=== PATIENT | female | born 1970 | race Two or more races ===

== ENCOUNTER 2017-02-16 12:49 | Emergency (ER) | payer BC ==
[~2017-02-16] VITALS: Ht 162.6 cm; Wt 81.6 kg
[2017-02-16] MEDS ORDERED: IV NORMAL SALINE 1000ML BAG 1,000 ML IV SCH (13:29)
[2017-02-16 13:46] LABS: BASO % 1 % (0-3); EOS % 1 % (0-3); HEMATOCRIT 43.2 % (36.0-47.0); HEMOGLOBIN 14.6 g/dL (12.0-15.5); LYMPH # 1.2 x10^3/uL (1.0-4.8); LYMPH % 17 % (24-48); MEAN CORPUSCULAR HEMOGLOBIN 31 pg (25-35); MEAN CORPUSCULAR HGB CONC 34 g/dL (31-37); MEAN CORPUSCULAR VOLUME 91 fL (79-100); MONO % 7 % (0-9); NEUT % 74 % (31-73); PLATELET COUNT 222 x10^3/uL (140-400); RED BLOOD COUNT 4.73 x10^6/uL (3.50-5.40); RED CELL DISTRIBUTION WIDTH 13.2 % (11.5-14.5); WHITE BLOOD COUNT 6.6 x10^3/uL (4.0-11.0)
--- NOTE | 2017-02-16 13:47 | EKG ---
[facility] [address] [place] [address] Test Date: 2017-02-16 Test Time: 13:39:41 Pat Name: CRESCENCIO MENDOSA Department: Room: Gender: F [employer]: : 1970 Requested By: LETICIA POE Order Number: [id number] Reading MD: Rebeca Figueroa Measurements Intervals Warner Rate: 73 P: 31 PA: 166 QRS: 21 QRSD: 90 T: 26 QT: 372 QTc: 413 Interpretive Statements SINUS RHYTHM NORMAL ECG Electronically Signed On 02-16-2017 21:06:18 CDT by Rebeca Figueroa
[2017-02-16 13:55] LABS: INR 0.9 (0.8-1.1); PROTHROMBIN TIME PATIENT 11.6 SEC (11.7-14.0)
[2017-02-16 14:00] LABS: CALCIUM 9.5 mg/dL (8.5-10.1); CREATININE 0.6 mg/dL (0.6-1.0); GFR 108.6; POTASSIUM 3.7 mmol/L (3.5-5.1)
[2017-02-16 14:02] LABS: NEG OBC SER NEG; POS OBC SER POS
[2017-02-16 14:03] LABS: ALBUMIN 3.5 g/dL (3.4-5.0); DIRECT BILIRUBIN 0.1 mg/dL (0.0-0.2); MAGNESIUM 1.7 mg/dL (1.8-2.4); TOTAL BILIRUBIN 0.5 mg/dL (0.2-1.0); TOTAL PROTEIN 7.9 g/dL (6.4-8.2)
--- NOTE | 2017-02-16 14:08 | PHYS DOC ---
Past Medical History Past Medical History: Diabetes-Type II, Hypertension Past Surgical History: No Surgical History Alcohol Use: Occasionally Drug Use: None Adult General Chief Complaint Chief Complaint: HYPERGLYCEMIA HPI HPI Patient is a 46 year old female who presents with C me. She was seen by her primary care physician today and they state her sugars were 400. She is normally on insulin twice a day and states she's been very compliant her sugars usually run 200. She states denies any nausea vomiting chest pain or dysuria. She states she feels perfectly fine other than her doctor told her that her sugars were elevated. They did give her additional 20 units of short-acting insulin there. She is normally on aspart and degludec injections. Review of Systems Review of Systems Constitutional: Denies fever or chills [] Eyes: Denies change in visual acuity, redness, or eye pain [] HENT: Denies nasal congestion or sore throat [] Respiratory: Denies cough or shortness of breath [] Cardiovascular: No additional information not addressed in HPI [] GI: Denies abdominal pain, nausea, vomiting, bloody stools or diarrhea [] : Denies dysuria or hematuria [] Musculoskeletal: Denies back pain or joint pain [] Integument: Denies rash or skin lesions [] Neurologic: Denies headache, focal weakness or sensory changes [] Endocrine: Denies polyuria or polydipsia [] Current Medications Current Medications Current Medications Medications (Trade) Dose Ordered Sig/Amada Start Time Stop Time Status Last Admin Dose Admin Sodium Chloride 1,000 ml @ 1,000 mls/hr Q1H 02/16/17 13:29 02/16/17 14:29 DC 02/16/17 14:35 1,000 MLS/HR Allergies Allergies Allergies Coded Allergies Type Severity Reaction Last Updated Verified No Known Drug Allergies 02/16/17 No Physical Exam Physical Exam Constitutional: Well developed, well nourished, no acute distress, non-toxic appearance. [] HENT: Normocephalic, atraumatic, bilateral external ears normal, oropharynx moist, no oral exudates, nose normal. [] Eyes: PERRLA, EOMI, conjunctiva normal, no discharge. [] Neck: Normal range of motion, no tenderness, supple, no stridor. [] Cardiovascular:Heart rate regular rhythm, no murmur [] Lungs & Thorax: Bilateral breath sounds clear to auscultation [] Abdomen: Bowel sounds normal, soft, no tenderness, no masses, no pulsatile masses. [] Skin: Warm, dry, no erythema, no rash. [] Back: No tenderness, no CVA tenderness. [] Extremities: No tenderness, no cyanosis, no clubbing, ROM intact, no edema. [] Neurologic: Alert and oriented X 3, normal motor function, normal sensory function, no focal deficits noted. [] Psychologic: Affect normal, judgement normal, mood normal. [] Current Patient Data Vital Signs Vital Signs Date Time Temp Pulse Resp B/P (MAP) Pulse Ox O2 Delivery O2 Flow Rate FiO2 02/16/17 13:22 98.7 85 16 127/79 (95) 99 Room Air 98.7 Lab Values Laboratory Tests Test 02/16/17 13:23 02/16/17 13:29 02/16/17 13:42 02/16/17 14:30 Glucose (Fingerstick) 233 mg/dL (70-99) H White Blood Count 6.6 x10^3/uL (4.0-11.0) Red Blood Count 4.73 x10^6/uL (3.50-5.40) Hemoglobin 14.6 g/dL (12.0-15.5) Hematocrit 43.2 % (36.0-47.0) Mean Corpuscular Volume 91 fL (79-100) Mean Corpuscular Hemoglobin 31 pg (25-35) Mean Corpuscular Hemoglobin Concent 34 g/dL (31-37) Red Cell Distribution Width 13.2 % (11.5-14.5) Platelet Count 222 x10^3/uL (140-400) Neutrophils (%) (Auto) 74 % (31-73) H Lymphocytes (%) (Auto) 17 % (24-48) L Monocytes (%) (Auto) 7 % (0-9) Eosinophils (%) (Auto) 1 % (0-3) Basophils (%) (Auto) 1 % (0-3) Neutrophils # (Auto) 4.9 x10^3uL (1.8-7.7) Lymphocytes # (Auto) 1.2 x10^3/uL (1.0-4.8) Monocytes # (Auto) 0.5 x10^3/uL (0.0-1.1) Eosinophils # (Auto) 0.1 x10^3/uL (0.0-0.7) Basophils # (Auto) 0.0 x10^3/uL (0.0-0.2) Prothrombin Time 11.6 SEC (11.7-14.0) L Prothrombin Time INR 0.9 (0.8-1.1) Sodium Level 137 mmol/L (136-145) Potassium Level 3.7 mmol/L (3.5-5.1) Chloride Level 101 mmol/L (98-107) Carbon Dioxide Level 29 mmol/L (21-32) Anion Gap 7 (6-14) Blood Urea Nitrogen 14 mg/dL (7-20) Creatinine 0.6 mg/dL (0.6-1.0) Estimated GFR (Cockcroft-Gault) 108.6 Glucose Level 223 mg/dL (70-99) H Calcium Level 9.5 mg/dL (8.5-10.1) Magnesium Level 1.7 mg/dL (1.8-2.4) L Total Bilirubin 0.5 mg/dL (0.2-1.0) Direct Bilirubin 0.1 mg/dL (0.0-0.2) Aspartate Amino Transferase (AST) 17 U/L (15-37) Alanine Aminotransferase (ALT) 20 U/L (14-59) Alkaline Phosphatase 128 U/L (46-116) H Creatine Kinase 66 U/L (26-192) Creatine Kinase MB (Mass) 0.6 ng/mL (0.0-3.6) Creatine Kinase MB Relative Index % (0-4) Troponin I Quantitative < 0.017 ng/mL (0.000-0.055) QZ-Wiv-C-Type Natriuretic Peptide 63 pg/mL (0-124) Total Protein 7.9 g/dL (6.4-8.2) Albumin 3.5 g/dL (3.4-5.0) Lipase 140 U/L (73-393) Thyroid Stimulating Hormone (TSH) 1.385 uIU/mL (0.358-3.74) Serum Test, Qualitative Negative (NEG) POC Urine HCG, Qualitative Hcg negative (Negative) Urine Color Yellow Urine Clarity Clear Urine pH 6.0 Urine Specific [place] >=1.030 Urine Protein Negative mg/dL (NEG-TRACE) Urine Glucose (UA) >=1000 mg/dL (NEG) Urine Ketones (Stick) Negative mg/dL (NEG) Urine Blood Negative (NEG) Urine Nitrite Negative (NEG) Urine Bilirubin Negative (NEG) Urine Urobilinogen Dipstick 0.2 mg/dL (0.2 mg/dL) Urine Leukocyte Esterase Negative (NEG) Urine RBC 0 /HPF (0-2) Urine WBC Occ /HPF (0-4) Urine Squamous Epithelial Cells Occ /LPF Urine Bacteria Moderate /HPF (0-FEW) Urine Mucus Slight /LPF Laboratory Tests 02/16/17 13:29 Laboratory Tests 02/16/17 13:29 EKG EKG KG shows sinus rhythm rate [address] elevations or T-wave inversions , normal axis, QTC 413 ms, as interpreted by me. Radiology/Procedures Radiology/Procedures [] Impressions: Hyperglycemia Course & Med Decision Making Course & Med Decision Making Pertinent Labs and Imaging studies reviewed. (See chart for details) She states her sugars usually run into 200s. She received an extra dose at her doctor's office today. She's being discharged home and follow-up with her primary care physician within the next 2-3 days. I spoke with Dr. Kurtz who is agreeable plan and being discharged in stable condition this time. I had a long conversation with her son and the patient regarding checking her sugars 4 times daily before meals and before bedtime and keep a log of this. She is agreeable to the plan and being discharged in stable condition this time. Dragon Disclaimer Dragon Disclaimer This electronic medical record was generated, in whole or in part, using a voice recognition dictation system. Departure Departure Impression: Primary Impression: Hyperglycemia Disposition: 01 HOME, SELF-CARE Condition: STABLE Referrals: LIVIA KURTZ MD (PCP) Patient Instructions: Hyperglycemia, [id number] Additional Instructions: Your blood work did not show any acute abnormalities. Your being discharged home. You will need to call Dr. Kurtz's office and follow-up with her within the next 2 days. Return ER for elevated sugars above 300. Uncontrolled nausea vomiting or other concerns. LETICIA POE MD Feb 16, 2017 14:08
[2017-02-16 14:10] LABS: CKMB MASS 0.6 ng/mL (0.0-3.6); CREATINE KINASE 66 U/L (26-192)
[2017-02-16 14:44] LABS: BILIRUBIN,URINE NEGATIVE (NEG); GLUCOSE,URINE >=1000 mg/dL (NEG); NITRITE,URINE NEGATIVE (NEG); PROTEIN,URINE NEGATIVE (NEG-TRACE); UROBILINOGEN,URINE 0.2 mg/dL (0.2 mg/dL)
[2017-02-16 14:58] LABS: RBC,URINE 0 /HPF (0-2); WBC,URINE OCC /HPF (0-4)
[2017-02-16 14:59] LABS: BACTERIA,URINE MODERATE /HPF (0-FEW); SQUAMOUS EPITHELIAL CELL,UR OCC /LPF
[2017-02-16 15:22] VITALS: BP 110/63
== END 2017-02-16 15:45 | disposition home or self-care (01) ==
LOC: ER 12:49
DX: E11.65 Type 2 diabetes mellitus with hyperglycemia (principal); I10 Essential (primary) hypertension; Z79.4 Long term (current) use of insulin
CPT/HCPCS: 36415; 80048; 80076; 81001; 81025; 82553; 82962; 83690; 83735; 83880; 84443; 84484; 84703; 85027; 85610; 87086; 93005; 96360; 99285; J7030; 87186

== ENCOUNTER 2018-01-16 21:32 | Emergency (ER) | payer BC ==
[2018-01-17 07:27] LABS: NEGATIVE OBC STREP NEG; POSITIVE OBC STREP POS
== END 2018-01-16 22:44 | disposition home or self-care (01) ==
LOC: ER 22:44
DX: J02.9 Acute pharyngitis, unspecified (principal); E11.9 Type 2 diabetes mellitus without complications; I10 Essential (primary) hypertension
CPT/HCPCS: 87070; 87880; 99284

== ENCOUNTER → 2018-09-08 | Outpatient (CLI) | payer BC ==
[2018-01-16 21:51] VITALS: BP 135/73
--- NOTE | 2018-09-08 16:01 | RAD ---
DATE: 09/08/2018 EXAM: MAMMO ALAN SCREENING BILATERAL HISTORY: Routine screening COMPARISON: 03/21/2013 This study was interpreted with the benefit of Computerized Aided Detection (CAD). Breast Density: HETERO The breast parenchyma is heterogenously dense, which could reduce sensitivity of mammography. Breast parenchyma level C. FINDINGS: 2-D and 3-D tomosynthesis imaging was performed in CC and MLO projections. There is a small nodular opacity projected over the anteromedial aspect of the right breast in the CC projection. It is best demonstrated on CC tomosynthesis images #37. It appears to just superior and medial to the midline of the breast. It was not clearly visible on the previous study. A definite correlate is not visualized in the oblique projection. No other new or enlarging breast densities are seen. No suspicious microcalcifications are evident. IMPRESSION: Small medial right breast nodule. Additional imaging including spot compression cc and straight mediolateral mammograms, as well as probably right breast ultrasound is indicated. BI-RADS CATEGORY: 0 INCOMPLETE: NEEDS ADDITIONAL IMAGING EVALUATION AND/OR PRIOR MAMMOGRAMS FOR COMPARISON. RECOMMENDED FOLLOW-UP: ADD ADDITIONAL IMAGING PQRS compliance statement: Patient information was entered into a reminder system with a target due date for the next mammogram. Mammography is a sensitive method for finding small breast cancers, but it does not detect them all and is not a substitute for careful clinical examination. A negative mammogram does not negate a clinically suspicious finding and should not result in delay in biopsying a clinically suspicious abnormality. "Our facility is accredited by the [employer] Mammography Program."
== END | disposition home or self-care (01) ==
LOC: MAMMO 13:33
PROVIDERS: ATTEND Physician Assistant Surgical
DX: Z12.31 Encounter for screening mammogram for malignant neoplasm of breast (principal)
CPT/HCPCS: 77063; 77067

== ENCOUNTER → 2018-09-21 | Outpatient (CLI) | payer BC ==
[2018-01-16 21:51] VITALS: BP 135/73
--- NOTE | 2018-09-22 07:42 | RAD ---
DATE: 09/21/2018 EXAM: DIGITAL DIAGNOSTIC RT, BREAST RIGHT HISTORY: Medial right breast nodule. COMPARISON: Screening mammogram 09/08/2018 This study was interpreted with the benefit of Computerized Aided Detection (CAD). The breast parenchyma FINDINGS: Right breast digital 2-D diagnostic mammogram: Spot compression digital 2-D CC and MLO views and full field MLO view were obtained. There is a persistent asymmetry on spot compression views in the medial right breast, anterior depth, which when correlated with the screening tomosynthesis view, is likely within 3 cm from the nipple. Patient will proceed to right breast ultrasound for further evaluation. Limited right breast ultrasound: At the 12:00 position 6 cm from the nipple, there is a cyst with a thin internal incomplete septation without evidence of internal vascularity measuring 0.5 x 0.3 x 0.3 cm. At the 10:00 position 6 and appears from the nipple, there is a simple cyst. At the 1:30 position, 3 cm from the nipple, there is an oval cyst with eccentric debris with no evidence of internal vascularity measuring 1.0 x 0.2 x 0.7 cm. At the 4:00 position 3 cm from the nipple, there is a cyst with a few thin internal septations and no internal vascularity measuring 0.5 x 0.2 x 0.3 cm. Impression: Three medial right breast cysts with internal debris or septations with no evidence of internal vascularity. Findings are likely complicated cysts, though follow-up limited right breast ultrasound in 6 months is recommended. BI-RADS CATEGORY: 3 PROBABLY BENIGN FINDING(S)-SHORT INTERVAL FOLLOW-UP SUGGESTED RECOMMENDED FOLLOW-UP: 6M 6 MONTH FOLLOW-UP PQRS compliance statement: Patient information was entered into a reminder system with a target due date for the next mammogram. Mammography is a sensitive method for finding small breast cancers, but it does not detect them all and is not a substitute for careful clinical examination. A negative mammogram does not negate a clinically suspicious finding and should not result in delay in biopsying a clinically suspicious abnormality. "Our facility is accredited by the [employer] Mammography Program."
== END | disposition home or self-care (01) ==
LOC: MAMMO 09:36
PROVIDERS: ATTEND Physician Assistant Surgical
DX: N60.01 Solitary cyst of right breast (principal)
CPT/HCPCS: 76641; 77065